=== PATIENT | male | born 1965 | race Hispanic/Latino ===

== ENCOUNTER 2018-12-13 00:55 | Emergency (ER) | payer MEDICAID ==
[2018-12-13 01:10] VITALS: BP 159/100
== END 2018-12-13 03:03 | disposition left against medical advice (07) ==
LOC: ED 00:55
DX: H57.10 Ocular pain, unspecified eye (principal); Z53.21 Procedure and treatment not carried out due to patient leaving prior to being seen by health care provider

== ENCOUNTER 2019-10-14 12:39 | Emergency (ER) | payer MEDICAID ==
--- NOTE | 2019-10-14 14:21 | Event Note ---
ED Screening Note Date of service: 10/14/19 Time: 14:20 ED Screening Note: This initial assessment/diagnostic orders/clinical plan/treatment(s) is/are subject to change based on patients health status, clinical progression and re- assessment by fellow clinical providers in the ED. Further treatment and workup at subsequent clinical providers discretion. Patient/guardian urged not to elope from the ED as their condition may be serious if not clinically assessed and managed. Initial orders include: 54yo M states that he was treated for a UTI a week ago and symptoms are still present. He has a history of chronic UTIs.
[2019-10-14 18:55] LABS: Bilirubin,Urine NEG (Negative); Blood,Urine SM (Negative); Color,Urine Amber (Yellow); Mucus,Urine FEW /HPF; Urobilinogen,Urine < 2.0 mg/dL (<2.0); WBC,Urine > 182.0 /HPF (0.0-6.0)
[2019-10-14] MEDS ORDERED: LIDOCAINE-MPF (1%) 10 MG/1 ML VIAL 5 ML INFILTRATI ONE (18:57)
--- NOTE | 2019-10-14 18:57 | Emergency Department Report ---
ED Male HPI - General Chief complaint: Urogenital-Male Stated complaint: UTI Time Seen by Provider: 10/14/19 13:49 Source: family Mode of arrival: Wheelchair Limitations: No Limitations - History of Present Illness Initial comments: Patient is a 54-year-old male presents emergency room with complaints of a UTI that began 4 days ago. He has associated foul-smelling odor of his urine, darker urine, lower back discomfort. He denies any nausea, vomiting, diarrhea, fever. He states that he frequently has UTIs and gets them every other month, he is wheelchair bound and self caths. He states that he last saw urologist a month ago. He states his primary care office is closed and he was not able to get in with him. He has a past medical history of hypertension. He denies any allergies to medications. - Related Data Previous Rx's Medication Instructions Recorded Last Taken Type Albuterol INH(or & Nicu Only) 2 puff IH QID PRN #1 inhalation 07/16/13 Unknown Rx [ProAir HFA Inhaler] Azithromycin [Zithromax] 500 mg PO QDAY #5 tablet 07/16/13 Unknown Rx Hycodan 5 ml PO Q4H #120 07/16/13 Unknown Rx Ciprofloxacin HCl [Cipro] 500 mg PO Q12H #28 tab 08/20/13 Unknown Rx Clindamycin [Clindamycin CAP] 300 mg PO Q6H #40 capsule 08/20/13 Unknown Rx Naproxen Sodium (Nf) [Anaprox DS] 550 mg PO BID PRN #20 tablet 08/20/13 Unknown Rx Ondansetron [Zofran Odt] 4 mg PO Q8HR PRN #14 tab.rapdis 10/14/19 Unknown Rx Phenazopyridine [Pyridium] 100 mg PO TID PRN #14 tab 10/14/19 Unknown Rx cephALEXin [Keflex] 500 mg PO BID 10 Days #20 cap 10/14/19 Unknown Rx Allergies Allergy/AdvReac Type Severity Reaction Status Date / Time No Known Allergies Allergy Unverified 07/15/13 20:11 ED Review of Systems ROS: Stated complaint: UTI Other details as noted in HPI Comment: All other systems reviewed and negative ED Past Medical Hx - Past Medical History Previous Medical History?: Yes Additional medical history: T10 para - Surgical History Past Surgical History?: Yes Hx Cholecystectomy: Yes Hx Appendectomy: Yes Additional Surgical History: spinal cord surg - Social History Smoking Status: Current Every Day Smoker Substance Use Type: None - Medications Home Medications: Home Medications Medication Instructions Recorded Confirmed Last Taken Type Albuterol INH(or & Nicu Only) 2 puff IH QID PRN #1 inhalation 07/16/13 Unknown Rx [ProAir HFA Inhaler] Azithromycin [Zithromax] 500 mg PO QDAY #5 tablet 07/16/13 Unknown Rx Hycodan 5 ml PO Q4H #120 07/16/13 Unknown Rx Ciprofloxacin HCl [Cipro] 500 mg PO Q12H #28 tab 08/20/13 Unknown Rx Clindamycin [Clindamycin CAP] 300 mg PO Q6H #40 capsule 08/20/13 Unknown Rx Naproxen Sodium (Nf) [Anaprox DS] 550 mg PO BID PRN #20 tablet 08/20/13 Unknown Rx Ondansetron [Zofran Odt] 4 mg PO Q8HR PRN #14 tab.rapdis 10/14/19 Unknown Rx Phenazopyridine [Pyridium] 100 mg PO TID PRN #14 tab 10/14/19 Unknown Rx cephALEXin [Keflex] 500 mg PO BID 10 Days #20 cap 10/14/19 Unknown Rx ED Physical Exam - General Limitations: No Limitations General appearance: alert, in no apparent distress - Head Head exam: Present: atraumatic, normocephalic - Eye Eye exam: Present: normal appearance - ENT ENT exam: Present: mucous membranes moist - Respiratory Respiratory exam: Present: normal lung sounds bilaterally. Absent: respiratory distress, wheezes, rales, rhonchi, stridor, chest wall tenderness, accessory muscle use, decreased breath sounds, prolonged expiratory - Cardiovascular Cardiovascular Exam: Present: regular rate, normal rhythm, normal heart sounds. Absent: systolic murmur, diastolic murmur, rubs, gallop - GI/Abdominal GI/Abdominal exam: Present: soft, normal bowel sounds. Absent: distended, tenderness, guarding, rebound, rigid - Back Exam Back exam: Absent: CVA tenderness (R), CVA tenderness (L) - Neurological Exam Neurological exam: Present: alert, oriented X3 - Psychiatric Psychiatric exam: Present: normal affect, normal mood - Skin Skin exam: Present: warm, dry, intact ED Course Vital Signs 10/14/19 10/14/19 10/14/19 13:28 13:32 19:31 Temperature 98.5 F 98.2 F Pulse Rate 80 81 Respiratory 16 16 Rate Blood Pressure 170/98 Blood Pressure 187/82 [Left] O2 Sat by Pulse 97 100 Oximetry ED Medical Decision Making - Medical Decision Making Patient is a 54-year-old male presents emergency room with complaints of a UTI that began 4 days ago. He has associated foul-smelling odor of his urine, darker urine, lower back discomfort. He denies any nausea, vomiting, diarrhea, fever. He states that he frequently has UTIs and gets them every other month, he is wheelchair bound and self caths. He states that he last saw urologist a month ago. He states his primary care office is closed and he was not able to get in with him. He has a past medical history of hypertension. He denies any allergies to medications. vitals with elevated blood pressure otherwise normal, pt has chronic hypertension, is asymptomatic at this time, advised to follow up with PCP regarding BP. No abdominal tenderness or CVA tenderness on exam. UA with greater than 182 white blood cells, large leukocyte esterase, red blood cells present, nitrites are negative. Patient given 1 g ceftriaxone IM while in the emergency department. Urine culture sent. Advised patient to follow-up with medical records and 3 to 5 days for urine culture results and take these results to his primary care physician or urologist. Patient given prescription for Keflex, Pyridium, Zofran. advised pt Please take medication as prescribed. Increase your water intake. Medication may turn your urine orange. Follow-up with the urologist. Follow-up with a primary care doctor. Please go to medical records for your urine culture results in 3 to 5 days. Return to the emergency room immediately for any new or worsening symptoms. Critical care attestation.: If time is entered above; I have spent that time in minutes in the direct care of this critically ill patient, excluding procedure time. ED Disposition Clinical Impression: UTI (urinary tract infection) Qualifiers: Urinary tract infection type: acute cystitis Hematuria presence: with hematuria Qualified Code(s): N30.01 - Acute cystitis with hematuria Disposition: TO HOME OR SELFCARE Is pt being admited?: No Does the pt Need Aspirin: No Condition: Stable Instructions: Urinary Tract Infection in Women (ED) Additional Instructions: Please take medication as prescribed. Increase your water intake. Medication may turn your urine orange. Follow-up with the urologist. Follow-up with a primary care doctor. Please go to medical records for your urine culture results in 3 to 5 days. Return to the emergency room immediately for any new or worsening symptoms. Prescriptions: cephALEXin [Keflex] 500 mg PO BID 10 Days #20 cap Phenazopyridine [Pyridium] 100 mg PO TID PRN #14 tab PRN Reason: urinary symptoms Ondansetron [Zofran Odt] 4 mg PO Q8HR PRN #14 tab.rapdis PRN Reason: Nausea And Vomiting Referrals: ZAC GAGE MD [Staff Physician] - 2-3 Days PRIMARY CARE, [Primary Care Provider] - 2-3 Days Time of Disposition: 19:00 Print Language: FIJIAN
[2019-10-14 19:33] VITALS: BP 187/82
== END 2019-10-14 19:35 | disposition home or self-care (01) ==
LOC: ED 12:39
DX: N39.0 Urinary tract infection, site not specified (principal); F17.200 Nicotine dependence, unspecified, uncomplicated
CPT/HCPCS: 81001; 87076; 87086; 87186; 96372; 99283; J0696

== ENCOUNTER 2020-05-14 21:22 | Emergency (ER) | payer MEDICAID ==
[2020-05-14 23:11] LABS: Bilirubin,Urine NEG (Negative); Blood,Urine NEG (Negative); Color,Urine Yellow (Yellow); Mucus,Urine FEW /HPF; Protein,Urine <15 mg/dL mg/dL (Negative)
[2020-05-14] MEDS ORDERED: AMOXICILLIN/K CLAV 875/125MG TAB PO ONE (23:56)
[2020-05-14] MEDS ORDERED: traMADol 50 MG TAB PO ONE (23:56)
--- NOTE | 2020-05-15 00:01 | Emergency Department Report ---
ED General Adult HPI - General Chief complaint: Eye Problems Stated complaint: EYE PAIN Time Seen by Provider: 05/14/20 23:34 Source: patient Mode of arrival: Wheelchair Limitations: Physical Limitation - History of Present Illness Initial comments: Patient 55-year-old male who presents for dental pain and left eye swelling irritation x4 days. Patient denies fevers or chills there is no ear or throat pain. He does endorse history of dental caries. Requesting referral to community dentist. Pain is rated at 4/10 aching pain is exacerbated by hot and cold stimuli and eating. Left eye irritation with no decrease in vision there is purulent drainage noted. Patient states likely pinkeye. There is no fever or chills. - Related Data Previous Rx's Medication Instructions Recorded Last Taken Type Albuterol Mdi (or & Nicu Only) 2 puff IH QID PRN #1 inhalation 07/16/13 Unknown Rx [ProAir HFA Inhaler] Azithromycin [Zithromax] 500 mg PO QDAY #5 tablet 07/16/13 Unknown Rx Hycodan 5 ml PO Q4H #120 07/16/13 Unknown Rx Ciprofloxacin HCl [Cipro] 500 mg PO Q12H #28 tab 08/20/13 Unknown Rx Clindamycin [Clindamycin CAP] 300 mg PO Q6H #40 capsule 08/20/13 Unknown Rx Naproxen Sodium (Nf) [Anaprox DS] 550 mg PO BID PRN #20 tablet 08/20/13 Unknown Rx Ondansetron [Zofran Odt] 4 mg PO Q8HR PRN #14 tab.rapdis 10/14/19 Unknown Rx Phenazopyridine [Pyridium] 100 mg PO TID PRN #14 tab 10/14/19 Unknown Rx cephALEXin [Keflex] 500 mg PO BID 10 Days #20 cap 10/14/19 Unknown Rx Amoxicillin/Potassium Clav 1 each PO BID 7 Days #14 tablet 05/15/20 Unknown Rx [Augmentin 875-125 Tablet] Ketotifen Fumarate [Zaditor] 2 drops OP BID PRN #5 ml 05/15/20 Unknown Rx traMADoL [Ultram] 50 mg PO Q6HR PRN #12 tablet 05/15/20 Unknown Rx Allergies Allergy/AdvReac Type Severity Reaction Status Date / Time No Known Allergies Allergy Unverified 07/15/13 20:11 ED Review of Systems ROS: Stated complaint: EYE PAIN Other details as noted in HPI Constitutional: denies: chills, fever Eyes: eye pain, eye discharge. denies: vision change ENT: dental pain. denies: ear pain, throat pain, congestion Respiratory: denies: cough, shortness of breath, wheezing Cardiovascular: denies: chest pain, palpitations Endocrine: no symptoms reported Gastrointestinal: denies: abdominal pain, nausea, diarrhea Genitourinary: denies: urgency, dysuria Musculoskeletal: denies: back pain, joint swelling, arthralgia Skin: denies: rash, lesions Neurological: denies: headache, weakness, paresthesias Psychiatric: denies: anxiety, depression Hematological/Lymphatic: denies: easy bleeding, easy bruising ED Past Medical Hx - Past Medical History Previous Medical History?: Yes Hx Hypertension: Yes Additional medical history: T10 paraplegia - Surgical History Past Surgical History?: Yes Hx Cholecystectomy: Yes Hx Appendectomy: Yes Additional Surgical History: spinal cord surg - Social History Smoking Status: Current Every Day Smoker Substance Use Type: None - Medications Home Medications: Home Medications Medication Instructions Recorded Confirmed Last Taken Type Albuterol Mdi (or & Nicu Only) 2 puff IH QID PRN #1 inhalation 07/16/13 Unknown Rx [ProAir HFA Inhaler] Azithromycin [Zithromax] 500 mg PO QDAY #5 tablet 07/16/13 Unknown Rx Hycodan 5 ml PO Q4H #120 07/16/13 Unknown Rx Ciprofloxacin HCl [Cipro] 500 mg PO Q12H #28 tab 08/20/13 Unknown Rx Clindamycin [Clindamycin CAP] 300 mg PO Q6H #40 capsule 08/20/13 Unknown Rx Naproxen Sodium (Nf) [Anaprox DS] 550 mg PO BID PRN #20 tablet 08/20/13 Unknown Rx Ondansetron [Zofran Odt] 4 mg PO Q8HR PRN #14 tab.rapdis 10/14/19 Unknown Rx Phenazopyridine [Pyridium] 100 mg PO TID PRN #14 tab 10/14/19 Unknown Rx cephALEXin [Keflex] 500 mg PO BID 10 Days #20 cap 10/14/19 Unknown Rx Amoxicillin/Potassium Clav 1 each PO BID 7 Days #14 tablet 10/30/20 Unknown Rx [Augmentin 875-125 Tablet] Ketotifen Fumarate [Zaditor] 2 drops OP BID PRN #5 ml 05/15/20 Unknown Rx traMADoL [Ultram] 50 mg PO Q6HR PRN #12 tablet 05/15/20 Unknown Rx ED Physical Exam - General Limitations: Physical Limitation General appearance: alert, in no apparent distress - Head Head exam: Present: atraumatic, normocephalic - Eye Eye exam: Present: normal appearance, PERRL, EOMI, conjunctival injection, other (inferior orbital erythema swella purulent drainage ). Absent: nystagmus, periorbital tenderness - ENT ENT exam: Present: mucous membranes moist - Expanded ENT Exam Expanded Mouth exam: Absent: trismus Teeth exam: Present: dental caries, dental tenderness # (15) Throat exam: Negative: tonsillar erythema, tonsillomegaly, tonsillar exudate - Neck Neck exam: Present: normal inspection, full ROM. Absent: tenderness, lymphadenopathy - Respiratory Respiratory exam: Present: normal lung sounds bilaterally. Absent: respiratory distress - Cardiovascular Cardiovascular Exam: Present: regular rate, normal rhythm, normal heart sounds. Absent: systolic murmur, diastolic murmur, rubs, gallop - GI/Abdominal GI/Abdominal exam: Present: soft, normal bowel sounds - Rectal Rectal exam: Present: deferred - Extremities Exam Extremities exam: Present: normal inspection - Back Exam Back exam: Present: normal inspection, full ROM. Absent: tenderness - Neurological Exam Neurological exam: Present: alert, oriented X3, normal gait - Psychiatric Psychiatric exam: Present: normal affect, normal mood - Skin Skin exam: Present: warm, dry, intact, normal color. Absent: rash ED Course Vital Signs 05/14/20 22:18 Temperature 99.4 F Pulse Rate 87 Respiratory 18 Rate Blood Pressure 184/107 O2 Sat by Pulse 100 Oximetry ED Medical Decision Making - Medical Decision Making This is straight forward Dacrocystitis, and dental carries. plan: augmentin, zaditor, ultram follow up with dentist in 3-5 days , warm compresses to left eye/cheek, return to emergency if symptoms worsen. Critical care attestation.: If time is entered above; I have spent that time in minutes in the direct care of this critically ill patient, excluding procedure time. ED Disposition Clinical Impression: Infected dental carries Dacrocystitis Qualifiers: Laterality: left Qualified Code(s): H04.302 - Unspecified dacryocystitis of l eft lacrimal passage Disposition: TO HOME OR SELFCARE Is pt being admited?: No Does the pt Need Aspirin: No Condition: Stable Instructions: Dental Caries (ED), Conjunctivitis (ED) Prescriptions: Amoxicillin/Potassium Clav [Augmentin 875-125 Tablet] 1 each PO BID 7 Days #14 tablet traMADoL [Ultram] 50 mg PO Q6HR PRN #12 tablet PRN Reason: Pain Ketotifen Fumarate [Zaditor] 2 drops OP BID PRN #5 ml PRN Reason: itching eye Referrals: HUDSON CONLEY MD [Staff Physician] - 3-[address] [facility] [Provider Group] - 3-5 Days Time of Disposition: 00:07
[2020-05-15 00:53] VITALS: BP 167/103
== END 2020-05-15 00:15 | disposition home or self-care (01) ==
LOC: ED 21:22
DX: K02.9 Dental caries, unspecified (principal); H04.302 Unspecified dacryocystitis of left lacrimal passage; I10 Essential (primary) hypertension; F17.200 Nicotine dependence, unspecified, uncomplicated; Z90.49 Acquired absence of other specified parts of digestive tract; Z98.890 Other specified postprocedural states
CPT/HCPCS: 81001; 99283